=== PATIENT | male | born 1930 | race Caucasian/White ===

== ENCOUNTER 2017-12-08 14:43 | Emergency (ER) | payer OTHER ==
[~2017-12-08] VITALS: Ht 180.3 cm; Wt 80.0 kg
[2017-12-08 15:09] VITALS: BP 171/81; PULSE 123; RESP 16; TEMP 98.5; O2SAT 95
[2017-12-08] MEDS ORDERED: SODIUM CHLORID 0.9% 500 ML INJ 500 ML IV ONE (15:30)
[2017-12-08] MEDS ORDERED: ONDANSETRON HCL 4 MG/2 ML VIAL IV PUSH ONE (15:30)
[2017-12-08 15:49] VITALS: RESP 18; O2SAT 98
--- NOTE | 2017-12-08 16:06 | RADRPT ---
EXAM DATE/TIME: 12/08/2017 15:29 [place] COMPARISON: No previous studies available for comparison. INDICATIONS : Chest pain, shaking all over, weakness MEDICAL HISTORY : None. SURGICAL HISTORY : None. ENCOUNTER: Initial ACUITY: 1 day PAIN SCORE: Non-responsive. LOCATION: Bilateral chest FINDINGS: Portable AP view of the chest demonstrates a normal-sized cardiac silhouette. No effusion, consolidat ion, or pneumothorax is visualized. The bones and soft tissues demonstrate no acute abnormality. Ther e are old healed right rib fractures. CONCLUSION: No acute cardiopulmonary abnormality is identified. Jacques Perez MD on December 08, 2017 at 16:03 Board Certified Radiologist. This report was verified electronically.
[2017-12-08 16:09] LABS: AUTOMATED NEUTROPHIL # 12.8 TH/MM3 (1.8-7.7); BASOPHIL # 0.1 TH/MM3 (0-0.2); BASOPHIL % 0.5 % (0.0-2.0); EOSINOPHIL % 0.3 % (0.0-4.0); HEMOGLOBIN 15.9 GM/DL (13.0-17.0); LYMPH % 3.4 % (9.0-44.0); LYMPHOCYTE # 0.5 TH/MM3 (1.0-4.8); MEAN CORPUSCULAR HEMOGLOBIN 32.4 PG (27.0-34.0); MEAN CORPUSCULAR HGB CONC 34.5 % (32.0-36.0); MEAN PLATELET VOLUME 8.2 FL (7.0-11.0); MONO % 5.3 % (0.0-8.0); MONOCYTE # 0.7 TH/MM3 (0-0.9); NEUT % 90.5 % (16.0-70.0); PLATELET COUNT 200 TH/MM3 (150-450); RED BLOOD COUNT 4.89 MIL/MM3 (4.50-5.90); RED CELL DISTRIBUTION WIDTH 13.6 % (11.6-17.2); WHITE BLOOD COUNT 14.1 TH/MM3 (4.0-11.0)
[2017-12-08 16:17] LABS: BILIRUBIN, URINE NEG (NEG); BLOOD, URINE NEG (NEG); GLUCOSE,URINE NEG (NEG); KETONE, URINE 40 mg/dL (NEG); NITRITE,URINE NEG (NEG); PH, URINE 6.5 (5.0-8.5); SQUAMOUS EPITHELIAL CELL URINE <1 /hpf (0-5); URINE COLOR YELLOW (YELLW/STRAW); URINE LEUKOCYTE ESTERASE NEG (NEG)
[2017-12-08 16:25] LABS: PROTHROMBIN TIME - PATIENT 10.2 SEC (9.8-11.6)
[2017-12-08 16:30] VITALS: BP 153/73; PULSE 112; RESP 16; O2SAT 100
[2017-12-08 16:42] LABS: ALT (GPT) 13 U/L (12-78)
[2017-12-08 17:03] LABS: ALBUMIN 3.8 GM/DL (3.4-5.0); ALKALINE PHOSPHATASE 96 U/L (45-117); AST (GOT) 20 U/L (15-37); BICARBONATE 22.2 MEQ/L (21.0-32.0); BLOOD UREA NITROGEN 18 MG/DL (7-18); CHLORIDE 104 MEQ/L (98-107); CREATININE 1.29 MG/DL (0.60-1.30); GLOMERULAR FILTRATION RATE 53 ML/MIN (>89); GLUCOSE,RANDOM 129 MG/DL (74-106); SODIUM (NA) 137 MEQ/L (136-145); TOTAL BILIRUBIN ADULT 0.9 MG/DL (0.2-1.0); TOTAL PROTEIN 7.8 GM/DL (6.4-8.2); TROPONIN I LESS THAN 0.02 NG/ML (0.02-0.05)
[2017-12-08] MEDS ORDERED: ZOFR4TAB3 SL (17:49)
--- NOTE | 2017-12-08 17:53 | PD ---
HPI Chief Complaint: General Weakness Time Seen by Provider: 14:54 Travel History International Travel<30 days: No Contact w/Intl Traveler<30days: No Traveled to known affect area: No History of Present Illness HPI 87-year-old male that presents to the ED for evaluation of generalized weakness. Patient reports [facility] which wants nuclear any nature in he finished a nuclear stress test in had a hot dog and on his way back he started feeling somewhat weak and nauseous as well as with a slight tremor. Patient was not brought here by ambulance for evaluation of this. Per patient he feels weak now and had some vomit in my initial evaluation. Patient denies any chest pain or shortness of breath. No urinary incontinence or bowel movement issues. Patient has any cough or runny nose. Per patient he was not feeling fine today except he was not hungry as he had to be n.p.o. for the procedure. He denies any other medical issues at this time. He states that he had a hot dog in between the stress testing he was not doing fine until his way back here. He denies any other medical symptoms. He was not given anything on his way here. He has no allergies to medication. Other medical issues. No pain. PFSH Past Medical History Medical History: Denies Significant Hx Diminished Hearing: No Tetanus Vaccination: < 5 Years Past Surgical History Surgical History: No Previous Surgery Social History Alcohol Use: No Tobacco Use: No Substance Use: No Allergies-Medications (Allergen,Severity, Reaction): Coded Allergies: No Known Allergies (Unverified , 12/08/17) Reported Meds & Prescriptions Reported Meds & Active Scripts Active Zofran Odt (Ondansetron Odt) 4 Mg Tab 4 Mg SL Q6HR PRN Review of Systems Except as stated in HPI: all other systems reviewed are Neg Physical Exam Narrative GENERAL: SKIN: Warm and dry. HEAD: Atraumatic. Normocephalic. EYES: Pupils equal and round. No scleral icterus. No injection or drainage. ENT: No nasal bleeding or discharge. Mucous membranes pink and moist. Tongue midline. No uvula deviation. NECK: Trachea midline. No JVD. CARDIOVASCULAR: Regular rate and rhythm. No murmurs, S3, S4. RESPIRATORY: No accessory muscle use. Clear to auscultation. Breath sounds equal bilaterally. GASTROINTESTINAL: Abdomen soft, non-tender, nondistended. Hepatic and splenic margins not palpable. MUSCULOSKELETAL: Extremities without clubbing, cyanosis, or edema. No obvious deformities. Full range of motion of the upper and lower extremities bilaterally. 2+ pulses bilaterally. NEUROLOGICAL: Awake and alert. No obvious cranial nerve deficits. Motor grossly within normal limits. Five out of 5 muscle strength in the arms and legs. Normal speech. PSYCHIATRIC: Appropriate mood and affect; insight and judgment normal. Data Data Last Documented VS Vital Signs Date Time Temp Pulse Resp B/P (MAP) Pulse Ox O2 Delivery O2 Flow Rate FiO2 12/08/17 15:49 18 98 Room Air 12/08/17 15:09 98.5 123 3.00 Orders Orders Ondansetron Inj (Zofran Inj) (12/08/17 15:30) Sodium Chlorid 0.9% 500 Ml Inj (Ns 500 M (12/08/17 15:30) Electrocardiogram (12/08/17 15:18) Complete Blood Count With Diff (12/08/17 15:18) Comprehensive Metabolic Panel (12/08/17 15:18) Ckmb (Isoenzyme) Profile (12/08/17 15:18) Troponin I (12/08/17 15:18) Prothrombin Time / Inr (Pt) (12/08/17 15:18) Act Partial Throm Time (Ptt) (12/08/17 15:18) Urinalysis - C+S If Indicated (12/08/17 15:18) Magnesium (Mg) (12/08/17 15:18) Thyroid Stimulating Hormone (12/08/17 15:18) Chest, Single Ap (12/08/17 15:18) Iv Access Insert/Monitor (12/08/17 15:18) Ecg Monitoring (12/08/17 15:18) Oximetry (12/08/17 15:18) Lipase (12/08/17 15:29) Ed Discharge Order (12/08/17 17:49) Labs Laboratory Tests Test 12/08/17 15:37 12/08/17 15:44 White Blood Count 14.1 TH/MM3 Red Blood Count 4.89 MIL/MM3 Hemoglobin 15.9 GM/DL Hematocrit 46.0 % Mean Corpuscular Volume 94.0 FL Mean Corpuscular Hemoglobin 32.4 PG Mean Corpuscular Hemoglobin Concent 34.5 % Red Cell Distribution Width 13.6 % Platelet Count 200 TH/MM3 Mean Platelet Volume 8.2 FL Neutrophils (%) (Auto) 90.5 % Lymphocytes (%) (Auto) 3.4 % Monocytes (%) (Auto) 5.3 % Eosinophils (%) (Auto) 0.3 % Basophils (%) (Auto) 0.5 % Neutrophils # (Auto) 12.8 TH/MM3 Lymphocytes # (Auto) 0.5 TH/MM3 Monocytes # (Auto) 0.7 TH/MM3 Eosinophils # (Auto) 0.0 TH/MM3 Basophils # (Auto) 0.1 TH/MM3 CBC Comment DIFF FINAL Differential Comment Prothrombin Time 10.2 SEC Prothromb Time International Ratio 1.0 RATIO Activated Partial Thromboplast Time 20.5 SEC Blood Urea Nitrogen 18 MG/DL Creatinine 1.29 MG/DL Random Glucose 129 MG/DL Total Protein 7.8 GM/DL Albumin 3.8 GM/DL Calcium Level 9.0 MG/DL Magnesium Level 2.0 MG/DL Alkaline Phosphatase 96 U/L Aspartate Amino Transf (AST/SGOT) 20 U/L Alanine Aminotransferase (ALT/SGPT) 13 U/L Total Bilirubin 0.9 MG/DL Sodium Level 137 MEQ/L Potassium Level 4.2 MEQ/L Chloride Level 104 MEQ/L Carbon Dioxide Level 22.2 MEQ/L Anion Gap 11 MEQ/L Estimat Glomerular Filtration Rate 53 ML/MIN Total Creatine Kinase 61 U/L Troponin I LESS THAN 0.02 NG/ML Lipase 119 U/L Thyroid Stimulating Hormone 3rd Gen 0.911 uIU/ML Urine Color YELLOW Urine Turbidity CLEAR Urine pH 6.5 Urine Specific [place] 1.012 Urine Protein TRACE mg/dL Urine Glucose (UA) NEG mg/dL Urine Ketones 40 mg/dL Urine Occult Blood NEG Urine Nitrite NEG Urine Bilirubin NEG Urine Urobilinogen LESS THAN 2.0 MG/DL Urine Leukocyte Esterase NEG Urine RBC 1 /hpf Urine WBC LESS THAN 1 /hpf Urine Squamous Epithelial Cells <1 /hpf Microscopic Urinalysis Comment CULT NOT INDICATED MDM Medical Decision Making Medical Screen Exam Complete: Yes Emergency Medical Condition: Yes Medical Record Reviewed: Yes Interpretation(s) CBC & BMP Diagram 12/08/17 15:37 Total Protein 7.8, Albumin 3.8, Calcium Level 9.0, Magnesium Level 2.0, Alkaline Phosphatase 96, Aspartate Amino Transf (AST/SGOT) 20, Alanine Aminotransferase (ALT/SGPT) 13, Total Bilirubin 0.9 Coags within normal limits. EKG shows sinus tachycardia but sinus rhythm with no sign of acute ischemia or arrythmia read by me and attending Troponin and CK-MB negative. Differential Diagnosis Medication side effect versus weakness versus nausea and vomit versus dehydration Narrative Course 87-year-old male presents to the ED for evaluation of weakness after procedure today. Patient has probably some minimal signs an symptoms of unclear etiology but likely side effect from the nuclear stress test he had this morning. Patient having some nausea with given Zofran half a liter of fluids. Patient was assessed and he improved an hour later. Patient feels normal. Per family member he is acting more normal. The series to go home. Patient had blood work otherwise essentially unremarkable. He wants sinus tachycardia with the fluids alone his tachycardia did went down. Case with discussed with my attending Dr. Garnett progress the patient can be discharged as long as he is able to ambulate had no symptoms. Patient had a ambulatory test in the past feels better. Patient desires to go home. Patient will stop that if anything worsens his to come back. Follow-up with PCP. See ED if worsening symptoms. Diagnosis Primary Impression: Medication side effect Qualified Codes: T88.7XXA - Unspecified adverse effect of drug or medicament, initial encounter Additional Impression: Nausea Patient Instructions: General Instructions Additional Instructions: Follow with PCP. See ED for worsening symptoms. Take medications as prescribed only as needed. Take it easy next couple of days. Med/Other Pt SpecificInfo: Prescription(s) given Scripts Ondansetron Odt (Zofran Odt) 4 Mg Tab 4 MG SL Q6HR Y for Nausea/Vomiting, #30 TAB 0 Refills Prov: Shade Maurer MD 12/08/17 Disposition: 01 DISCHARGE HOME Condition: Stable Warren Padron Dec 08, 2017 17:53
--- NOTE | 2017-12-09 10:18 | EKG ---
Date Performed: 12/08/2017 Time Performed: 15:05:35 PTAGE: 87 years EKG: SINUS TACHYCARDIA NONSPECIFIC ST & T-WAVE ABNORMALITY ABNORMAL RHYTHM ECG NO PREVIOUS TRACING DOCTOR: Ameya Maravilla Interpretating Date/Time 12/09/2017 10:18:15
== END 2017-12-08 18:10 | disposition home or self-care (01) ==
LOC: NEPE 14:43
DX: T88.7XXA Unspecified adverse effect of drug or medicament, initial encounter (principal); R11.2 Nausea with vomiting, unspecified; R94.31 Abnormal electrocardiogram [ECG] [EKG]
CPT/HCPCS: 71045; 80053; 81001; 82550; 83690; 83735; 84443; 84484; 85025; 85610; 85730; 93005; 96361; 96374; 99285; J2405; J7040

== ENCOUNTER 2018-12-28 14:22 | Observation (INO) ==
[2018-12-28] MEDS ORDERED: Sodium Chlor 0.9% Inj 500 ML IV.SIG ONE (19:46)
--- NOTE | 2018-12-28 19:51 | ED ---
HPI General Chief complaint: Nausea/Vomiting/Diarrhea Stated complaint: GI Time Seen by Provider: 12/28/18 19:18 Source: patient History of Present Illness HPI narrative: The patient is an 88 year old male who presents to the [facility] emergency department with a history of nausea and vomiting that first began at 10 PM on Thursday. The patient reports that the vomiting initially was occurring every 15 minutes and consisted of anything that he would eat or drink , and then dry heaves. The patient reports that he was seen yesterday in the emergency department by Dr. Redd and had laboratory studies and a CT scan of the abdomen and pelvis done. The patient reports that he was told that he was dehydrated and after IV fluids was discharged home with a prescription for Zofran. The patient reports that he continues to vomit and is unable to keep anything down. He reports that he did try to take his medications today, however he threw up the medicine. The patient denies having any abdominal pain other than surface pain along the upper abdomen related to vomiting. The patient reports having frequent belching and reflux symptoms. He reports that he has been taking his acid reflux medication as prescribed. According to the record, the patient is on lansoprazole. The patient arrives with his family at the bedside. They report that they are concerned that his blood pressure has been elevated today. 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 Their concern for the possibility of aspiration. They report that the patient did not have a chest x-ray done yesterday. The patient denies having any chest pain, chest pressure. He does report having some shortness of breath with exertion, however he reports that this is chronic and no worse than usual. He denies having any cough or congestion. He denies having any fevers or chills. The patient reports that his last bowel movement was yesterday afternoon. He denies having any blood in his stool or black or tarry stools. He reports that his stools been dark brown. He denies having any diarrhea associated with this. On review of systems otherwise, the patient denies having neck pain, diarrhea, or neurologic symptoms. Incidentally, on review of systems the patient reports that over the last few weeks he has had some difficulty starting his stream of urine, however he denies having any urinary frequency. He reports having some dysuria with attempting to push his urine out. He reports that he did have a urinalysis yesterday that was Related Data Home Medications Medication Instructions Recorded Confirmed amlodipine 5 mg PO DAILY 12/27/18 12/28/18 hypromellose 1 drp OPHTHALMIC (EYE) QID 12/27/18 12/28/18 lansoprazole 15 mg PO DAILY 12/27/18 12/28/18 lidocaine 1 applic TOPICAL BID 12/27/18 12/28/18 loratadine 10 mg PO DAILY 12/27/18 12/28/18 tramadol 50 mg PO QAM AND QPM 12/27/18 12/28/18 trazodone 100 mg PO HS 12/27/18 12/28/18 Previous Rx's Medication Instructions Recorded ondansetron 4 mg PO Q6H PRN #10 tab 12/27/18 Allergies Allergy/AdvReac Type Severity Reaction Status Date / Time No Known Allergies Allergy Unverified 12/08/17 15:19 Review of Systems ROS: all other systems reviewed are negative [facility] Medical History Medical History Carotid artery disease (Acute) Acid reflux (Acute) Back pain (Acute) Hypertension (Acute) Seasonal allergies (Acute) Surgical History Surgical History Status post hernia repair (Acute) Family History Family History Other Family history normal Social History Social History Substance History: No History of Abuse Second Hand Smoke Exposure: No Smoking Status: Never smoker How Often Do You Have a Drink Containing Alcohol: Monthly or less Recent Travel in [facility] within the Last 8 Weeks: No Recent Out of Country Travel within the Last 8 Weeks: No Immunization History Tetanus Immunization: Unsure Exam Const General: cooperative, no acute distress and well developed Nutritional Appearance: well nourished Orientation: alert, awake and oriented x3 HENMT Head: normocephalic and atraumatic Nose: no nasal discharge and no epistaxis Mouth: moist mucous membranes Throat: posterior oropharynx normal and uvula midline Eyes Sclera: normal sclerae Pupils: PERRL Neck Neck: no meningeal signs, trachea midline and no JVD Resp Effort & Inspection: no use of accessory muscles Auscultation: clear to auscultation bilaterally Cardio Rate: regular rate Rhythm: regular rhythm Heart Sounds: no murmurs GI Inspection: non-distended Palpation: soft, no hepatosplenomegaly, no guarding, not rigid and nontender Auscultation: normal bowel sounds Back/Spine/Pelvis Back: no CVA tenderness Skin General: dry skin (warm) Neuro General: alert, awake, oriented x3 and other (Grossly nonfocal) Speech: speech normal Motor: no movement abnormalities noted Extrem General: normal to inspection, no calf tenderness, no clubbing, no cyanosis and no edema Psych Mood: congruent mood Affect: normal affect Judgment: judgment good Course Initial Documented Vital Signs Temperature 98.2 F 12/28/18 14:27 Pulse Rate 121 H 12/28/18 14:27 Respiratory Rate 20 12/28/18 14:27 Blood Pressure 173/95 H 12/28/18 14:27 Pulse Oximetry 95 12/28/18 14:27 Last Documented Vital Signs Temperature 98.9 F 12/29/18 04:00 Pulse Rate 107 H 12/29/18 04:00 Respiratory Rate 20 12/29/18 04:00 Blood Pressure 179/80 H 12/29/18 04:00 Pulse Oximetry 94 L 12/29/18 04:00 Medical Decision Making MDM Narrative Medical decision making narrative: During the course of the patient's emergency department visit, the patient's history, examination, and differential diagnosis were reviewed with the patient. The patient was placed on a cardiac cath technologist with oximetry and frequent blood pressure monitoring. The patient had IV access obtained and blood work sent for analysis. A diagnostic evaluation was started regarding the patient's intractable vomiting. The patient's electronic medical record was reviewed regarding the patient's evaluation done yesterday. The patient was initially provided normal saline 1 L IV fluid bolus, Reglan 5 mg IV. The patient's diagnostic studies are remarkable for a white count of 8.4, hemoglobin 17.9, platelets 256 with neutrophils 85, lymphocytes 5.3, monocytes 9.4. PT PTT within normal limits, chemistries remarkable for a BUN of 34, creatinine of 1.63 which is increased compared to his creatinine yesterday suggestive of worsening dehydration, glucose 118, CPK is 122, CK-MB elevated at 5, troponin I is elevated from yesterday at 0.07, total protein 8.4, lipase 75. A chest x-ray shows no acute abnormality. In spite of Reglan, the patient continued to have nausea. The patient was given Compazine 5 mg IV. The patient's case including history, pertinent physical examination findings, and laboratory studies were discussed with Dr. Carlton. It was agreed that the patient would be admitted to the hospitalist service. The patient's results were discussed with the patient, including the plan of care. I explained that further testing and/ or monitoring is indicated based on the patient's history, examination, and/ or laboratory findings. Therefore, I recommended admission for additional evaluation. The patient expressed understanding and was agreeable with this plan. The patient was admitted to the hospital in stable condition and sent to a bed under the care of the [facility] service. Medical Screen Exam Complete: Yes Emergency Medical Condition: Yes Differential Diagnosis Differential Diagnosis: Dehydration, versus electrolyte derangement, versus aspiration pneumonia, versus acute coronary syndrome Medical Records Medical records reviewed: Yes I reviewed the patient's medical records. Lab Data Lab results reviewed: Yes I reviewed the patient's lab results. Result diagrams: 12/29/18 02:22 12/29/18 02:22 Lab Results 12/28/18 12/28/18 12/28/18 Range/Units 19:45 19:45 19:45 WBC 8.4 (4.0-11.0) th/mm3 RBC 5.55 (4.50-5.90) mil/mm3 Hgb 17.9 H (13.0-17.0) gm/dL Hct 52.4 H (39.0-51.0) % MCV 94.4 (80.0-100.0) fL MCH 32.2 (27.0-34.0) pg MCHC 34.1 (32.0-36.0) % RDW 14.1 (11.6-17.2) % Plt Count 256 (150-450) th/mm3 MPV 8.4 (7.0-11.0) fL Neut % (Auto) 85.0 H (16.0-70.0) % Lymph % (Auto) 5.3 L (9.0-44.0) % [place] % (Auto) 9.4 H (0.0-8.0) % Eos % (Auto) 0.0 (0.0-4.0) % Baso % (Auto) 0.3 (0.0-2.0) % Neut # (Auto) 7.1 (1.8-7.7) th/mm3 Lymph # (Auto) 0.4 L (1.0-4.8) th/mm3 [place] # (Auto) 0.8 (0.0-0.9) th/mm3 Eos # (Auto) 0.0 (0.0-0.4) th/mm3 Baso # (Auto) 0.0 (0.0-0.2) th/mm3 WBC Differential . Differential Comment Auto diff final PT 10.4 (9.8-11.6) sec INR 1.0 Ratio APTT 29.6 (23.4-31.7) sec Sodium 138 (136-145) meq/L Potassium 3.8 (3.5-5.1) meq/L Chloride 101 (98-107) meq/L Carbon Dioxide 26.9 (21.0-32.0) meq/L Anion Gap 10 (5-15) meq/L BUN 34 H (7-18) mg/dL Creatinine 1.63 H (0.60-1.30) mg/dL Estimated GFR 40 L (>89) mL/min Random Glucose 118 H (74-106) mg/dL Lactic Acid (0.4-2.0) mmol/L Calcium 9.2 (8.5-10.1) mg/dL Magnesium 2.3 (1.5-2.5) mg/dL Total Bilirubin 0.5 (0.2-1.0) mg/dL AST 29 (15-37) U/L ALT 18 (12-78) U/L Alkaline Phosphatase 81 (45-117) U/L Total Creatine Kinase 122 (39-308) U/L CK-MB (CK-2) 5.0 H (0.5-3.6) ng/mL Troponin I 0.07 H (0.02-0.05) ng/mL Total Protein 8.4 H D (6.4-8.2) g/dL Albumin 3.8 D (3.4-5.0) g/dL Lipase 75 (73-393) U/L Urine Color (Yellw/Straw) Urine Clarity (Clear) Urine pH (5.0-8.5) Ur Specific [place] (1.002-1.035) Urine Protein (Neg-Trace) mg/dL Urine Glucose (UA) (Negative) mg/dL Urine Ketones (Negative) mg/dL Urine Occult Blood (Negative) Urine Nitrate (Negative) Urine Bilirubin (Negative) Urine Urobilinogen (Less than 2) mg/dL Ur Leukocyte Esterase (Negative) Urine RBC (0-3) /hpf Urine WBC (0-5) /hpf Ur Squamous Epith Cells (0-5) /hpf Hyaline Casts (0-3) /lpf Granular Casts (None) /lpf Urine Mucus (Occasional) /lpf Micro UA Comment Ur Microscopic Review Urine Culture Comments 12/28/18 12/28/18 12/29/18 Range/Units 19:45 22:40 02:22 WBC (4.0-11.0) th/mm3 RBC (4.50-5.90) mil/mm3 Hgb (13.0-17.0) gm/dL Hct (39.0-51.0) % MCV (80.0-100.0) fL MCH (27.0-34.0) pg MCHC (32.0-36.0) % RDW (11.6-17.2) % Plt Count (150-450) th/mm3 MPV (7.0-11.0) fL Neut % (Auto) (16.0-70.0) % Lymph % (Auto) (9.0-44.0) % [place] % (Auto) (0.0-8.0) % Eos % (Auto) (0.0-4.0) % Baso % (Auto) (0.0-2.0) % Neut # (Auto) (1.8-7.7) th/mm3 Lymph # (Auto) (1.0-4.8) th/mm3 [place] # (Auto) (0.0-0.9) th/mm3 Eos # (Auto) (0.0-0.4) th/mm3 Baso # (Auto) (0.0-0.2) th/mm3 WBC Differential Differential Comment PT (9.8-11.6) sec INR Ratio APTT (23.4-31.7) sec Sodium (136-145) meq/L Potassium (3.5-5.1) meq/L Chloride (98-107) meq/L Carbon Dioxide (21.0-32.0) meq/L Anion Gap (5-15) meq/L BUN (7-18) mg/dL Creatinine (0.60-1.30) mg/dL Estimated GFR (>89) mL/min Random Glucose (74-106) mg/dL Lactic Acid 2.5 H 1.5 (0.4-2.0) mmol/L Calcium (8.5-10.1) mg/dL Magnesium (1.5-2.5) mg/dL Total Bilirubin (0.2-1.0) mg/dL AST (15-37) U/L ALT (12-78) U/L Alkaline Phosphatase (45-117) U/L Total Creatine Kinase 108 (39-308) U/L CK-MB (CK-2) (0.5-3.6) ng/mL Troponin I 0.07 H (0.02-0.05) ng/mL Total Protein (6.4-8.2) g/dL Albumin (3.4-5.0) g/dL Lipase (73-393) U/L Urine Color (Yellw/Straw) Urine Clarity (Clear) Urine pH (5.0-8.5) Ur Specific [place] (1.002-1.035) Urine Protein (Neg-Trace) mg/dL Urine Glucose (UA) (Negative) mg/dL Urine Ketones (Negative) mg/dL Urine Occult Blood (Negative) Urine Nitrate (Negative) Urine Bilirubin (Negative) Urine Urobilinogen (Less than 2) mg/dL Ur Leukocyte Esterase (Negative) Urine RBC (0-3) /hpf Urine WBC (0-5) /hpf Ur Squamous Epith Cells (0-5) /hpf Hyaline Casts (0-3) /lpf Granular Casts (None) /lpf Urine Mucus (Occasional) /lpf Micro UA Comment Ur Microscopic Review Urine Culture Comments 12/29/18 12/29/18 12/29/18 Range/Units 02:22 02:22 02:52 WBC 8.9 (4.0-11.0) th/mm3 RBC 4.93 (4.50-5.90) mil/mm3 Hgb 15.6 D (13.0-17.0) gm/dL Hct 45.5 (39.0-51.0) % MCV 92.4 (80.0-100.0) fL MCH 31.6 (27.0-34.0) pg MCHC 34.2 (32.0-36.0) % RDW 13.7 (11.6-17.2) % Plt Count 214 (150-450) th/mm3 MPV 8.2 (7.0-11.0) fL Neut % (Auto) 79.3 H (16.0-70.0) % Lymph % (Auto) 7.0 L (9.0-44.0) % [place] % (Auto) 13.5 H (0.0-8.0) % Eos % (Auto) 0.0 (0.0-4.0) % Baso % (Auto) 0.2 (0.0-2.0) % Neut # (Auto) 7.1 (1.8-7.7) th/mm3 Lymph # (Auto) 0.6 L (1.0-4.8) th/mm3 [place] # (Auto) 1.2 H (0.0-0.9) th/mm3 Eos # (Auto) 0.0 (0.0-0.4) th/mm3 Baso # (Auto) 0.0 (0.0-0.2) th/mm3 WBC Differential . Differential Comment Auto diff final PT (9.8-11.6) sec INR Ratio APTT (23.4-31.7) sec Sodium 141 (136-145) meq/L Potassium 3.6 (3.5-5.1) meq/L Chloride 105 (98-107) meq/L Carbon Dioxide 25.8 (21.0-32.0) meq/L Anion Gap 10 (5-15) meq/L BUN 36 H (7-18) mg/dL Creatinine 1.43 H (0.60-1.30) mg/dL Estimated GFR 47 L (>89) mL/min Random Glucose 125 H (74-106) mg/dL Lactic Acid (0.4-2.0) mmol/L Calcium 8.4 L D (8.5-10.1) mg/dL Magnesium (1.5-2.5) mg/dL Total Bilirubin (0.2-1.0) mg/dL AST (15-37) U/L ALT (12-78) U/L Alkaline Phosphatase (45-117) U/L Total Creatine Kinase (39-308) U/L CK-MB (CK-2) (0.5-3.6) ng/mL Troponin I (0.02-0.05) ng/mL Total Protein (6.4-8.2) g/dL Albumin (3.4-5.0) g/dL Lipase (73-393) U/L Urine Color Yellow (Yellw/Straw) Urine Clarity Clear (Clear) Urine pH 5.0 (5.0-8.5) Ur Specific [place] 1.025 (1.002-1.035) Urine Protein 30 H (Neg-Trace) mg/dL Urine Glucose (UA) Negative (Negative) mg/dL Urine Ketones Negative (Negative) mg/dL Urine Occult Blood Negative (Negative) Urine Nitrate Negative (Negative) Urine Bilirubin Negative (Negative) Urine Urobilinogen Less than 2 (Less than 2) mg/dL Ur Leukocyte Esterase Negative (Negative) Urine RBC 1 (0-3) /hpf Urine WBC 1 (0-5) /hpf Ur Squamous Epith Cells <1 (0-5) /hpf Hyaline Casts 1 (0-3) /lpf Granular Casts 1 (None) /lpf Urine Mucus Few H (Occasional) /lpf Micro UA Comment Culture not ind Ur Microscopic Review Not Reportable Urine Culture Comments Culture not ind Imaging Data Radiologist's impression: Chest X-Ray 12/28/18 19:46 CONCLUSION: The lungs are clear. ECG Data Interpretation: The patient had an EKG done on arrival that shows a sinus tachycardia rate of 102 with frequent supraventricular premature complexes, heart rate QRS duration is 81 ms, QTC is [address] segment elevation. Discharge Plan Discharge Disposition Patient Disposition: ED Admit(ED Internal Use Only) Discharge Order Discharge Orders: ED Use Only Admit Order (Routine); Ordered 12/28/18 Ordered By: Marietta Moreno Discharge Details Diagnosis: Intractable nausea and vomiting, Dehydration, Elevated troponin Physicians Team ED Provider: Marietta Moreno Primary Care Provider: [facility],Physician 's Attending Provider: Josi Worthy Status ED Status: Left Department Discharge Information Discharge Date/Time: 12/29/18 01:55
[2018-12-28 20:10] LABS: Baso % (Auto) 0.3 % (0.0-2.0); Hematocrit 52.4 % (39.0-51.0); Hemoglobin 17.9 gm/dL (13.0-17.0); Lymph # (Auto) 0.4 th/mm3 (1.0-4.8); Lymph % (Auto) 5.3 % (9.0-44.0); Mean Corpuscular HGB Conc 34.1 % (32.0-36.0); Mean Corpuscular Hemoglobin 32.2 pg (27.0-34.0); Mean Corpuscular Volume 94.4 fL (80.0-100.0); Mean Platelet Volume 8.4 fL (7.0-11.0); Mono # (Auto) 0.8 th/mm3 (0.0-0.9); Mono % (Auto) 9.4 % (0.0-8.0); Neut # (Auto) 7.1 th/mm3 (1.8-7.7); Platelet Count 256 th/mm3 (150-450); Red Blood Count 5.55 mil/mm3 (4.50-5.90); Red Cell Distribution Width 14.1 % (11.6-17.2); White Blood Count 8.4 th/mm3 (4.0-11.0)
--- NOTE | 2018-12-28 20:13 | XR ---
EXAM DATE: 12/28/2018 8:11 PM EST AGE/SEX: 88 years / Male INDICATIONS: Nausea and vomiting. CLINICAL DATA: This is the patient's initial encounter. Patient reports that signs and symptoms have been present for 2 days and indicates a pain score of 3/10. MEDICAL/SURGICAL HISTORY: Hypertension. . [place] [facility] [place]. . FINDINGS: A single AP view of the chest demonstrates the lungs to be symmetrically aerated without evidence of mass, infiltrate or effusion. The cardiomediastinal contours are unremarkable. Osseous structures a re intact. CONCLUSION: The lungs are clear. Electronically signed by: Chava Watkins MD Board Certified Radiologist 12/28/2018 8:12 PM EST
[2018-12-28 20:22] LABS: Activated Partial Thrombo Time 29.6 sec (23.4-31.7); Prothrombin Time 10.4 sec (9.8-11.6)
[2018-12-28 20:28] LABS: Alanine Aminotransferase 18 U/L (12-78); Albumin 3.8 g/dL (3.4-5.0); Alkaline Phosphatase 81 U/L (45-117); Anion Gap 10 meq/L (5-15); Aspartate Aminotransferase 29 U/L (15-37); Blood Urea Nitrogen 34 mg/dL (7-18); Calcium 9.2 mg/dL (8.5-10.1); Carbon Dioxide 26.9 meq/L (21.0-32.0); Chloride 101 meq/L (98-107); Creatine Kinase 122 U/L (39-308); Glomerular Filtration Rate 40 mL/min (>89); Glucose,Random 118 mg/dL (74-106); Lipase 75 U/L (73-393); Magnesium 2.3 mg/dL (1.5-2.5); Potassium 3.8 meq/L (3.5-5.1); Sodium 138 meq/L (136-145); Total Protein 8.4 g/dL (6.4-8.2); Troponin I 0.07 ng/mL (0.02-0.05)
[2018-12-28] MEDS ORDERED: Bisacodyl 10 MG Supp RECTAL PRN (22:46)
[2018-12-28] MEDS ORDERED: Acetaminophen 325 MG Tablet PO PRN (22:46)
--- NOTE | 2018-12-28 23:31 | P.HP ---
History of Present Illness Service: [facility] Primary Care Physician: [facility] History of Present Illness: 88-year-old male with a past medical history significant for hypertension, hyperlipidemia and carotid stenosis presents to the emergency department for the evaluation of nausea/vomiting. Patient reports his symptoms started on Thursday night. He denies any blood in his emesis. No fever. No chest pain or shortness of breath. He reports generalized body aches and weakness. Denies any diarrhea. No focal neurologic deficits. Review of Systems All other systems reviewed negative except as stated in HPI PMFSH - History History Provided By: Patient - Medical History Medical History: Medical History (Last Reviewed 12/28/18 @ 23:26 by Ely Carlton MD) Carotid artery disease Acid reflux Back pain Hypertension Seasonal allergies - Surgical History Surgical History: Surgical History (Last Updated 12/28/18 @ 23:26 by Ely Carlton MD) Status post hernia repair - Family History Family History: Family History (Last Updated 12/28/18 @ 23:26 by Ely Carlton MD) Other Family history normal - Social History I have reviewed the patient's Social History: Yes - Tobacco History Smoking Status: Never smoker - Alcohol History How Often Do You Have a Drink Containing Alcohol: Monthly or less - Substance Use History Substance History: No History of Abuse - Immunization History Tetanus Immunization: Unsure Medications and Allergies Active Medications: Active Medications Acetaminophen (Tylenol) 650 mg PO Q4H PRN PRN Reason: Temp > 100.4 Al Hydroxide/Mg Hydroxide (Milk Of Magnmindy Liq) 30 ml PO Q12H PRN PRN Reason: Mild Constipation Bisacodyl (Dulcolax Supp) 10 mg RECTAL DAILY PRN PRN Reason: SEVERE CONSITIPATION Heparin Sodium (Porcine) (Heparin Inj) 5,000 units SQ Q8H SHO Sodium Chloride (Ns Inj) 1,000 mls @ 80 mls/hr IV.CONT .[id number] SHO Ondansetron HCl (Zofran Inj) 4 mg IV.PUSH Q6H PRN PRN Reason: NAUSEA OR VOMITING Sennosides (Senokot) 17.2 mg PO Q12H PRN PRN Reason: Moderate Constipation Sodium Chloride (Ns Flush) 2 ml IV.FLUSH PRN PRN PRN Reason: FLUSH AFTER USING IV ACCESS Sodium Chloride (Ns Flush) 2 ml IV.FLUSH BID SHO Sodium Chloride (Ns Flush) 2 ml IV.FLUSH PRN PRN PRN Reason: FLUSH AFTER USING IV ACCESS Allergies Allergy/AdvReac Type Severity Reaction Status Date / Time No Known Allergies Allergy Unverified 12/08/17 15:19 Home Medications Medication Instructions Recorded Confirmed Type amlodipine 5 mg PO DAILY 12/27/18 12/28/18 History hypromellose 1 drp OPHTHALMIC (EYE) QID 12/27/18 12/28/18 History lansoprazole 15 mg PO DAILY 12/27/18 12/28/18 History lidocaine 1 applic TOPICAL BID 12/27/18 12/28/18 History loratadine 10 mg PO DAILY 12/27/18 12/28/18 History tramadol 50 mg PO QAM AND QPM 12/27/18 12/28/18 History trazodone 100 mg PO HS 12/27/18 12/28/18 History Exam Vital signs: Vital Signs 12/28/18 14:27 12/28/18 19:24 12/28/18 19:35 Temperature 98.2 F Pulse Rate 121 H 106 H Respiratory Rate 20 18 Blood Pressure 173/95 H 183/100 H Pulse Oximetry 95 98 98 12/28/18 20:13 12/28/18 21:27 Temperature Pulse Rate 93 H 102 H Respiratory Rate 18 18 Blood Pressure 163/85 H 151/80 H Pulse Oximetry 97 98 Intake & Output 12/28/18 12/28/18 12/29/18 06:59 18:59 06:59 Intake Total 500 / 500 Balance 500 / 500 Weight 77.564 kg Intake: IV 500 / 500 NS Inj 500 ML @ Wide Open IV. 500 / 500 SIG BOLUS ONE Rx#:[id number] Other: Date of Last Bowel Movement 12/28/18 Narrative: Gen.: No acute distress Head: Normocephalic. Atraumatic. EENT: Pupils equal round and reactive to light. Nose without drainage. Airway intact. Throat without injection. Cardiovascular: Regular rate and rhythm. No murmurs, rubs or gallops. Respiratory: Lungs clear to auscultation bilaterally. No wheezes or rhonchi. Abdomen: Soft, nontender, nondistended. No peritoneal signs. Musculoskeletal: No gross deformities. No edema. Skin: No obvious rashes or erythema. Neuro: Sensory and motor grossly intact. Cranial nerves II through XII grossly intact. Results - Labs CBC & Chem 7: 12/28/18 19:45 12/28/18 19:45 Labs: Laboratory Results - last 24 hr 12/28/18 12/28/18 12/28/18 19:45 19:45 19:45 WBC 8.4 RBC 5.55 Hgb 17.9 H Hct 52.4 H MCV 94.4 MCH 32.2 MCHC 34.1 RDW 14.1 Plt Count 256 MPV 8.4 Neut % (Auto) 85.0 H Lymph % (Auto) 5.3 L [place] % (Auto) 9.4 H Eos % (Auto) 0.0 Baso % (Auto) 0.3 Neut # (Auto) 7.1 Lymph # (Auto) 0.4 L [place] # (Auto) 0.8 Eos # (Auto) 0.0 Baso # (Auto) 0.0 WBC Differential . Differential Comment Auto diff final PT 10.4 INR 1.0 APTT 29.6 Sodium 138 Potassium 3.8 Chloride 101 Carbon Dioxide 26.9 Anion Gap 10 BUN 34 H Creatinine 1.63 H Estimated GFR 40 L Random Glucose 118 H Lactic Acid Calcium 9.2 Magnesium 2.3 Total Bilirubin 0.5 AST 29 ALT 18 Alkaline Phosphatase 81 Total Creatine Kinase 122 CK-MB (CK-2) 5.0 H Troponin I 0.07 H Total Protein 8.4 H D Albumin 3.8 D Lipase 75 12/28/18 12/28/18 19:45 22:40 WBC RBC Hgb Hct MCV MCH MCHC RDW Plt Count MPV Neut % (Auto) Lymph % (Auto) [place] % (Auto) Eos % (Auto) Baso % (Auto) Neut # (Auto) Lymph # (Auto) [place] # (Auto) Eos # (Auto) Baso # (Auto) WBC Differential Differential Comment PT INR APTT Sodium Potassium Chloride Carbon Dioxide Anion Gap BUN Creatinine Estimated GFR Random Glucose Lactic Acid 2.5 H 1.5 Calcium Magnesium Total Bilirubin AST ALT Alkaline Phosphatase Total Creatine Kinase CK-MB (CK-2) Troponin I Total Protein Albumin Lipase - Imaging Impressions Chest X-Ray 12/28/18 19:46 CONCLUSION: The lungs are clear. Caprini VTE Risk Assessment Caprini VTE Risk Assessment: Moderate/High Risk (score >= 2) Caprini Risk Assessment Model: Point Value = 1 Point Value = 2 Point Value = 3 Point Value = 5 Age 41-60 Minor surgery BMI > 25 kg/m2 Swollen legs Varicose veins or History of unexplained or recurrent spontaneous Oral contraceptives or hormone replacement Sepsis (< 1 month) Serious lung disease, including pneumonia (< 1 month) Abnormal pulmonary function Acute myocardial infarction Congestive heart failure (< 1 month) History of inflammatory bowel disease Medical patient at bed rest Age 61-74 Arthroscopic surgery Major open surgery (> 45 min) Laparoscopic surgery (> 45 min) Malignancy Confined to bed (> 72 hours) Immobilizing plaster cast Central venous access Age >= 75 History of VTE Family history of VTE Factor V Leiden Prothrombin [id number] Lupus anticoagulant Anticardiolipin antibodies Elevated serum homocysteine Heparin-induced thrombocytopenia Other congenital or acquired thrombophilia Stroke (< 1 month) Elective arthroplasty Hip, pelvis, or leg fracture Acute spinal cord injury (< 1 month) Prophylaxis Regimen: Total Risk Factor Score Risk Level Prophylaxis Regimen 0-1 Low Early ambulation 2 Moderate Order ONE of the following: *Sequential Compression Device (SCD) *Heparin 5000 units SQ BID 3-4 Higher Order ONE of the following medications: *Heparin 5000 units SQ TID *Enoxaparin/Lovenox 40 mg SQ daily (WT < 150 kg, CrCl > 30 mL/min) *Enoxaparin/Lovenox 30 mg SQ daily (WT < 150 kg, CrCl > 10-29 mL/min) *Enoxaparin/Lovenox 30 mg SQ BID (WT < 150 kg, CrCl > 30 mL/min) AND/OR *Sequential Compression Device (SCD) 5 or more Highest Order ONE of the following medications: *Heparin 5000 units SQ TID (Preferred with Epidurals) *Enoxaparin/Lovenox 40 mg SQ daily (WT < 150 kg, CrCl > 30 mL/min) *Enoxaparin/Lovenox 30 mg SQ daily (WT < 150 kg, CrCl > 10-29 mL/min) *Enoxaparin/Lovenox 30 mg SQ BID (WT < 150 kg, CrCl > 30 mL/min) AND *Sequential Compression Device (SCD) Assessment and Plan - Plan Assessment/plan: 1. Nausea/vomiting Suspect secondary to viral gastroenteritis Symptoms improved with Zofran 2. Elevated troponin EKG without ST segment elevations or depressions, personally reviewed Troponin 0.07 ACS rule out pending; serial troponins/EKGs Patient denies any chest pain 3. Acute kidney injury BUN/creatinine 34/1.63 Baseline 1.2 Suspect secondary to dehydration from vomiting IV fluid hydration Monitor renal function on 4. Hypertension/hyperlipidemia Continue home amlodipine Patient now on home statin secondary to adverse response 5. Elevated lactic acid Likely secondary to dehydration Resolved with IV fluid hydration FEN N.p.o. Electrolytes: Monitor and replete as needed NS at 80 cc/hour Heparin
[2018-12-28] MEDS: Heparin - SQ 10,000 UNITS/ML Vial SQ SCH (23:54)
[2018-12-28] MEDS: Sod Chloride 0.9% Inj 1,000 ML IV.CONT SCH (23:54)
[2018-12-29 02:33] LABS: Baso % (Auto) 0.2 % (0.0-2.0); Hematocrit 45.5 % (39.0-51.0); Hemoglobin 15.6 gm/dL (13.0-17.0); Lymph # (Auto) 0.6 th/mm3 (1.0-4.8); Mean Corpuscular HGB Conc 34.2 % (32.0-36.0); Mean Corpuscular Hemoglobin 31.6 pg (27.0-34.0); Mean Corpuscular Volume 92.4 fL (80.0-100.0); Mean Platelet Volume 8.2 fL (7.0-11.0); Mono # (Auto) 1.2 th/mm3 (0.0-0.9); Mono % (Auto) 13.5 % (0.0-8.0); Neut # (Auto) 7.1 th/mm3 (1.8-7.7); Neut % (Auto) 79.3 % (16.0-70.0); Platelet Count 214 th/mm3 (150-450); Red Blood Count 4.93 mil/mm3 (4.50-5.90); Red Cell Distribution Width 13.7 % (11.6-17.2); White Blood Count 8.9 th/mm3 (4.0-11.0)
[2018-12-29 02:56] LABS: Troponin I 0.07 ng/mL (0.02-0.05)
[2018-12-29 03:18] LABS: Bilirubin,Urine Negative (Negative); Clarity,Urine Clear (Clear); Color,Urine Yellow (Yellw/Straw); Glucose,Urine (UA) Negative (Negative); Hyaline Casts,Urine 1 /lpf (0-3); Leukocyte Esterase,Urine Negative (Negative); Mucus,Urine Few /lpf (Occasional); Nitrite,Urine Negative (Negative); Specific Gravity,Urine 1.025 (1.002-1.035); Squamous Epithelial Cell,Urine <1 /hpf (0-5)
[2018-12-29 04:27] LABS: Calcium 8.4 mg/dL (8.5-10.1); Carbon Dioxide 25.8 meq/L (21.0-32.0); Potassium 3.6 meq/L (3.5-5.1)
[2018-12-29] MEDS: Heparin - SQ 10,000 UNITS/ML Vial SQ SCH ×2 (06:10→15:25)
[2018-12-29 07:41] VITALS: PULSE 89; O2SAT 95
[2018-12-29] MEDS ORDERED: amLODIPine 5 MG Tablet PO SCH (09:00)
[2018-12-29] MEDS: Sod Chloride 0.9% Inj 1,000 ML IV.CONT SCH ×2 (09:57→12:34)
--- NOTE | 2018-12-29 11:02 | P.PNIM ---
Subjective Interval history: Follow-up for gastroenteritis. Patient seen with his family at bedside. The patient reports feeling much better today. He denies any further episodes of nausea or vomiting. Denies any abdominal pain. He states he believed he ate some bad ham at home as his symptoms occurred shortly after ingestion. He wants to try some soft foods such as oatmeal. He would like to go home today if possible. Discussed his mildly elevated troponins. The patient and family reports he has had extensive cardiac workup in the past with nuclear stress test and echocardiograms which have been unremarkable. They do not want any cardiac testing as he had a bad reaction to the medications used in the nuclear medicine scan. Patient states he did not want any invasive procedures done because he has been told that due to his carotid stenosis, he is high risk for stroke if he undergoes any procedure. He has no other medical complaints at this time. Physical Exam Vital signs: Vital Signs 12/28/18 14:27 12/28/18 19:24 12/28/18 19:35 Temperature 98.2 F Pulse Rate 121 H 106 H Respiratory Rate 20 18 Blood Pressure 173/95 H 183/100 H Pulse Oximetry 95 98 98 12/28/18 20:13 12/28/18 21:27 12/29/18 00:52 Temperature Pulse Rate 93 H 102 H 96 H Respiratory Rate 18 18 18 Blood Pressure 163/85 H 151/80 H 173/82 H Pulse Oximetry 97 98 95 12/29/18 02:36 12/29/18 04:00 12/29/18 07:40 Temperature 98.9 F 98.7 F Pulse Rate 105 H 107 H 89 Respiratory Rate 20 18 Blood Pressure 179/80 H 166/91 H Pulse Oximetry 94 L 95 Intake & Output 12/28/18 12/29/18 12/29/18 18:59 06:59 18:59 Intake Total 500 / 500 1000 / 1000 Balance 500 / 500 1000 / 1000 Weight 77.564 kg 77.564 kg Intake: IV 500 / 500 1000 / 1000 NS Inj 1,000 ML @ 80 mls/hr IV. 1000 / 1000 CONT .[id number] SHO Rx#:[id number] NS Inj 500 ML @ Wide Open IV. 500 / 500 SIG BOLUS ONE Rx#:[id number] Other: # Voids 0 Date of Last Bowel Movement 12/28/18 Weight On Admission 77.564 kg Narrative: GENERAL: Well-nourished, well-developed pleasant elderly male patient in NAD. SKIN: Warm and dry. No rash. HEENT: Normocephalic. Atraumatic. Pupils equal and round. Mucous membranes pink and moist. CARDIOVASCULAR: Regular rate and rhythm. No murmur appreciated. RESPIRATORY: No accessory muscle use. Clear to auscultation. Breath sounds equal bilaterally. GASTROINTESTINAL: Abdomen soft, non-tender, nondistended. Normoactive bowel sounds x4. MUSCULOSKELETAL: No obvious deformities. Extremities without clubbing, cyanosis , or edema. NEUROLOGICAL: Awake and alert. No obvious cranial nerve deficits. Motor grossly within normal limits. Moving all extremities spontaneously. Normal speech. PSYCHIATRIC: Appropriate mood and affect; insight and judgment normal. Results Labs CBC & Chem 7: 12/29/18 02:22 12/29/18 11:19 Imaging Imaging: Impressions Chest X-Ray 12/28/18 19:46 CONCLUSION: The lungs are clear. Assessment and Plan Plan 88-year-old male with a past medical history significant for hypertension, hyperlipidemia and carotid stenosis presents to the emergency department for the evaluation of nausea/vomiting. Gastroenteritis: Patient presented with intractable Nausea/vomiting, suspect secondary to viral gastroenteritis -Giving IVF hydration -Antiemetics prn -Symptoms resolved, advanced to soft diet, patient tolerating well, stable for discharge Elevated troponin: troponins flat at 0.07 -EKG without ST segment elevations or depressions, personally reviewed -Patient denies any chest pain -Patient and family decline any cardiac testing, previously unremarkable and previously had reaction to nuclear medicine, also would decline cardiac cath due to previously being told he is high risk for stroke given hx of carotid artery disease, recommended outpatient f/up Acute kidney injury: BUN/creatinine 34/1.63, baseline 1.2. Suspect secondary to dehydration from vomiting -Give IV fluid hydration -Monitor renal function, improved with Cr 1.36 -Tolerating oral intake, encouraged to continue oral hydration after discharge Hypertension/hyperlipidemia: chronic -Continue home amlodipine -Patient not on home statin secondary to adverse reaction Elevated lactic acid: Likely reactive secondary to dehydration/vomiting -Resolved with IV fluid hydration DVT Prophylaxis: Heparin sq Discharge Planning: Discharge patient to home Condition on discharge: Stable Cardiac Diet as tolerated Ad Saba activity Rx written: stefan prn Follow-up with primary care physician, cardiology, gastroenterology Progress Note: Quality VTE Deep Vein Thrombosis/Pulmonary Embolism Present on Admission: No
[2018-12-29 11:54] VITALS: BP 141/73; RESP 20; TEMP 98.9
[2018-12-29 12:34] LABS: Troponin I 0.09 ng/mL (0.02-0.05)
[2018-12-29 13:06] LABS: Calcium 8.1 mg/dL (8.5-10.1); Carbon Dioxide 25.4 meq/L (21.0-32.0); Potassium 3.5 meq/L (3.5-5.1)
--- NOTE | 2018-12-29 20:50 | ECG ---
Date Performed: 12/29/2018 Time Performed: 02:37:49 PTAGE: 88 years EKG: SINUS TACHYCARDIA NONSPECIFIC T-WAVE ABNORMALITY ABNORMAL ECG PREVIOUS TRACING : 12/28/2018 20.02 Since the previous tracing, no significant change noted DOCTOR: Manuel Martínez Interpretating Date/Time 12/29/2018 20:49:35
[2018-12-29] MEDS ORDERED: traZODone 100 MG Tablet PO SCH (21:00)
--- NOTE | 2018-12-29 21:22 | ECG ---
Date Performed: 12/28/2018 Time Performed: 20:02:35 PTAGE: 88 years EKG: ECTOPIC ATRIAL TACHYCARDIA WITH FREQUENT SUPRAVENTRICULAR PREMATURE COMPLEXES NONSPECIFIC T -WAVE ABNORMALITY ABNORMAL RHYTHM ECG INTERPRETATION BASED ON A DEFAULT AGE OF 40 YEARS PREVIOUS TRACING : 12/27/2018 11.48 DOCTOR: Manuel Martínez Interpretating Date/Time 12/29/2018 21:21:18
== END 2018-12-29 16:08 | disposition home or self-care (01) ==
LOC: NEPC 14:22 → INTOOBSV 21:15 → NEDA 21:15 → NEPHCDU 12-29 01:59
PROVIDERS: ADMIT Family Medicine; ATTEND Family Medicine
DX: Z79.899 Other long term (current) drug therapy; N17.9 Acute kidney failure, unspecified; R11.2 Nausea with vomiting, unspecified; E78.5 Hyperlipidemia, unspecified; I10 Essential (primary) hypertension; K21.9 Gastro-esophageal reflux disease without esophagitis; I65.29 Occlusion and stenosis of unspecified carotid artery; R30.0 Dysuria; R74.0 Nonspecific elevation of levels of transaminase and lactic acid dehydrogenase [LDH]; J30.2 Other seasonal allergic rhinitis; R74.8 Abnormal levels of other serum enzymes; I49.3 Ventricular premature depolarization
CPT/HCPCS: 10061; 71010; 71045; 80048; 80053; 81001; 82550; 82552; 83605; 83690; 83735; 84484; 85025; 85610; 85730; 90761; 90774; 90784; 93005; 96361; 96374; 99285; C8952; G0378; J1644; J2765; J7030; J7040